=== PATIENT | female | born 1945 | race Hispanic/Latino ===

== ENCOUNTER → 2021-11-02 | Outpatient (CLI) | payer MEDICARE | END | disposition home or self-care (01) | LOC: RAH 10:49 | PROVIDERS: ATTEND Internal Medicine Nephrology | DX: G31.9 Degenerative disease of nervous system, unspecified (principal); R20.2 Paresthesia of skin; R42 Dizziness and giddiness; R26.9 Unspecified abnormalities of gait and mobility; I10 Essential (primary) hypertension; E78.5 Hyperlipidemia, unspecified; I48.20 Chronic atrial fibrillation, unspecified; R73.03 Prediabetes; R71.8 Other abnormality of red blood cells; Z79.01 Long term (current) use of anticoagulants; Z79.899 Other long term (current) drug therapy; Z86.73 Personal history of transient ischemic attack (TIA), and cerebral infarction without residual deficits | CPT/HCPCS: 70544; 70547; 70551 ==